=== PATIENT | male | born 1970 | race Caucasian/White ===

== ENCOUNTER 2021-12-19 12:29 | Emergency (ER) | payer OTHER | END 2021-12-19 18:20 | disposition other institution (70) | LOC: ER1 12:29 | DX: S01.422A Laceration with foreign body of left cheek and temporomandibular area, initial encounter (principal); Z23 Encounter for immunization; W22.8XXA Striking against or struck by other objects, initial encounter | CPT/HCPCS: 70486; 90471; 90715; 96374; 96375; 96376; 99284; J0696; J2270; J2405 ==